=== PATIENT | female | born 1960 | race Caucasian/White ===

== ENCOUNTER 2017-04-29 06:28 | Day surgery (SDC) | payer BC ==
[~2017-04-29 06:28] MED LIST: Lactated Ringers 1,000 ML IV SCH; Sodium Chloride 0.9% 10 ML Syringe FLUSH PRN; Sodium Chloride 0.9% 2.5 ML Syringe FLUSH PRN; ceFAZolin 1 GM in Premix Bag 1 BAG IV ONE
[2017-04-29] MEDS ORDERED: Lidocaine 2% 5 ML SDV ONE (07:12)
[2017-04-29] MEDS ORDERED: Propofol 200 MG/20 ML SDV ONE (07:12)
[2017-04-29] MEDS ORDERED: Ondansetron 4 MG/2 ML SDV ONE (07:12)
[2017-04-29] MEDS ORDERED: fentaNYL 100 MCG/2 ML SDV ONE (07:12)
[2017-04-29] MEDS ORDERED: Midazolam 1 MG/ML 2 ML SDV ONE (07:13)
[2017-04-29] MEDS ORDERED: Lidocaine 1% with EPINEPHrine 1:100,000 20 ML MDV ONE (07:22)
[2017-04-29] MEDS ORDERED: Bupivacaine 0.25% 10 ML SDV ONE (07:22)
[2017-04-29] MEDS ORDERED: Neomycin/Polymyxin B Bladder Irrigation 1 ML Amp ONE (07:23)
--- NOTE | 2017-04-29 07:37 | PCM.PREANE ---
Preanesthetic Assessment - Anesthesia/Transfusion/Family Hx Anesthesia History: Prior Anesthesia Without Reaction Family History of Anesthesia Reaction: No Transfusion History: No Prior Transfusion(s) - Review of Systems General: No Symptoms Pulmonary: No Symptoms Cardiovascular: No Symptoms Gastrointestinal: No Symptoms Neurological: No Symptoms Other: Reports: None - Physical Assessment NPO Status Date: 04/28/17 O2 Sat by Pulse Oximetry: 98 Respiratory Rate: 16 Vital Signs: Last Vital Signs Temp 36.2 C 04/29/17 06:59 Pulse 64 04/29/17 06:59 Resp 16 04/29/17 06:59 BP 93/70 04/29/17 06:59 Pulse Ox 98 04/29/17 06:59 Height: 1.68 m Weight: 63.049 kg ASA Class: 2 Mental Status: Alert & Oriented x3 Airway Class: Mallampati = 2 Dentition: Reports: Normal Dentition ROM/Head Extension: Full Lungs: Clear to Auscultation, Normal Respiratory Effort Cardiovascular: Regular Rate, Regular Rhythm - Lab Values: Laboratory Last Values WBC 6.10 K/uL (4.0-11.0) 04/28/17 15:41 RBC 4.52 M/uL (4.30-5.90) 04/28/17 15:41 Hgb 14.3 g/dL (12.0-16.0) 04/28/17 15:41 Hct 42.5 % (36.0-46.0) 04/28/17 15:41 MCV 94.0 fL (80.0-98.0) 04/28/17 15:41 MCH 31.6 pg (27.0-32.0) 04/28/17 15:41 MCHC 33.6 g/dL (31.0-37.0) 04/28/17 15:41 RDW Std Deviation 46.2 fl (28.0-62.0) 04/28/17 15:41 RDW Coeff of Caitlin 13 % (11.0-15.0) 04/28/17 15:41 Plt Count 302 K/uL (150-400) 04/28/17 15:41 MPV 10.00 fL (7.40-12.00) 04/28/17 15:41 Nucleated RBC % 0.0 /100WBC 04/28/17 15:41 Nucleated RBCs # 0 K/uL 04/28/17 15:41 - Allergies Allergies/Adverse Reactions: Allergies Allergy/AdvReac Type Severity Reaction Status Date / Time codeine Allergy Nausea Verified 04/23/17 11:05 - Anesthesia Plan Pre-Op Medication Ordered: None - Acknowledgements Anesthesia Type Planned: General Anesthesia Pt an Appropriate Candidate for the Planned Anesthesia: Yes Alternatives and Risks of Anesthesia Discussed w Pt/Guardian: Yes Pt/Guardian Understands and Agrees with Anesthesia Plan: Yes PreAnesthesia Questionnaire HEENT History: Reports: Other (See Below) Other HEENT History: wears glasses Respiratory History: Reports: Other (See Below) Other Respiratory History: "had asthma attack in the past" Gastrointestinal History: Reports: None Genitourinary History: Reports: Renal Calculus 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: Psychiatric History: - Past Surgical History Head Surgeries/Procedures: Reports: None GI Surgical History: Reports: Colonoscopy Female Surgical History: Reports: Hysterectomy - SUBSTANCE USE Smoking Status *Q: Current Every Day Smoker Tobacco Use Within Last Twelve Months: Cigarettes Recreational Drug Use History: No - HOME MEDS Home Medications: Home Meds Ascorbic Acid [Vitamin C] 500 mg PO DAILY 04/23/17 [History] Cholecalciferol (Vitamin D3) [Vitamin D3] 1,000 units PO DAILY 04/23/17 [History ] Estradiol [Estrace 0.01% Vaginal Crm] 1 applic TOP ASDIRECTED 04/23/17 [History] - CURRENT (IN HOUSE) MEDS Current Meds: Current Medications Lactated Ringer's (Ringers, Lactated) 1,000 mls @ 125 mls/hr IV ASDIRECTED DAISY Last Admin: 04/29/17 07:01 Dose: 125 mls/hr Sodium Chloride (Saline Flush) 10 ml FLUSH ASDIRECTED PRN PRN Reason: Keep Vein Open Sodium Chloride (Saline Flush) 2.5 ml FLUSH ASDIRECTED PRN PRN Reason: Keep Vein Open Discontinued Medications Bupivacaine HCl (Sensorcaine-Mpf 0.25%) Confirm Administered Dose 10 ml .ROUTE .STK-MED ONE Stop: 04/29/17 07:23 Fentanyl (Sublimaze) Confirm Administered Dose 100 mcg .ROUTE .STK-MED ONE Stop: 04/29/17 07:13 Cefazolin Sodium/Dextrose 1 gm (/ Premix) 50 mls @ 100 mls/hr IV ONETIME ONE Stop: 04/29/17 05:29 Lidocaine (Xylocaine-Mpf 2%) Confirm Administered Dose 5 ml .ROUTE .STK-MED ONE Stop: 04/29/17 07:13 Lidocaine/Epinephrine (Xylocaine 1% With Epinephrine 1:100,000) Confirm Administered Dose 20 ml .ROUTE .STK-MED ONE Stop: 04/29/17 07:23 Midazolam HCl (Versed 1 Mg/Ml) Confirm Administered Dose 2 mg .ROUTE .STK-MED ONE Stop: 04/29/17 07:14 Neomycin/Polymyxin (Neosporin Gu Irrigant) Confirm Administered Dose 1 ml .ROUTE .STK-MED ONE Stop: 04/29/17 07:24 Ondansetron HCl (Zofran) Confirm Administered Dose 4 mg .ROUTE .STK-MED ONE Stop: 04/29/17 07:13 Propofol (Diprivan 20 Ml) Confirm Administered Dose 200 mg .ROUTE .STK-MED ONE Stop: 04/29/17 07:13
[2017-04-29] MEDS ORDERED: Scopolamine 1.5 MG Transdermal Patch ONE (07:43)
[2017-04-29] MEDS ORDERED: diphenhydrAMINE 50 MG/ML SDV ONE (08:13)
[2017-04-29] MEDS ORDERED: Dexamethasone 4 MG/ML 5 ML MDV ONE (08:13)
[2017-04-29] MEDS ORDERED: fentaNYL 100 MCG/2 ML SDV IVPUSH PRN (08:31)
--- NOTE | 2017-04-29 10:37 | PCM.OPNOTE ---
- General Post-Op/Procedure Note Date of Surgery/Procedure: 04/29/17 Operative Procedure(s): Anterior Colporrhaphy. Midurethral sling, Solyx system, . Cystoscopy Findings: Surgically absent cervix and [id number] degree cystocele. No bladder wall injury with patent ureters Pre Op Diagnosis: Stress urinary incontinence. 2nd degree cystoscele Post-Op Diagnosis: Same Anesthesia Technique: General LMA Primary Surgeon: Jackie Dela Cruz [employer] Recruiter: Tia Santiago Pathology: Vaginal mucosa Fluid Replacement, Intraop: 2,500 EBL in mLs: 30 Complications: None Condition: Good Free Text/Narrative:: Intake & Output 04/28/17 04/29/17 04/29/17 22:59 06:59 14:59 Intake Total 2900 Output Total 450 Balance 2450
--- NOTE | 2017-04-29 10:47 | PCM48HPAN ---
Post Anesthesia Note - EVALUATION WITHIN 48HRS OF ANESTHETIC Vital Signs in Normal Range: Yes Patient Participated in Evaluation: Yes Respiratory Function Stable: Yes Airway Patent: Yes Cardiovascular Function Stable: Yes Hydration Status Stable: Yes Pain Control Satisfactory: Yes Nausea and Vomiting Control Satisfactory: Yes Mental Status Recovered: Yes
--- NOTE | 2017-04-29 10:47 | PCM.POSTAN ---
POST ANESTHESIA ASSESSMENT - MENTAL STATUS Mental Status: Alert, Oriented - RESPIRATORY Respiratory Status: Respiratory Rate WNL, Airway Patent - CARDIOVASCULAR CV Status: Pulse Rate WNL, Blood Pressure Stable - GASTROINTESTINAL GI Status: No Symptoms - POST OP HYDRATION Hydration Status: Adequate & Stable
[2017-04-29] MEDS: Ketorolac 15 MG/ML SDV IVPUSH SCH ×2 (11:57→19:27)
[2017-04-29] MEDS ORDERED: LORazepam 1 MG Tab PO SCH (15:00)
[2017-04-29] MEDS ORDERED: Citric Acid/Sodium Citrate Solution 30 ML Cup PO SCH (15:00)
--- NOTE | 2017-04-29 19:39 | PCM.SN ---
- Free Text/Narrative Note: Patient doing well. Passed voiding trial after removal of vaginal packing. Denies vaginal bleeding or pain. Comfortable going home tonight Post op instructions reviewed: Nothingin the vagina fgor 6 weeks( tampon/sex) Weight restrictions of 15lbs Bleeding/ infection precautions reviewed Follow up in the clinic in 2 weeks. Call with any concerns
--- NOTE | 2017-04-30 00:08 | OR ---
SURGEON: Jackie Dela Cruz MD DATE OF PROCEDURE: 04/29/2017 ROOM SERVICE MANAGER: Dr. Santiago. PREOPERATIVE DIAGNOSES: 1. Stress urinary incontinence. 2. Second-degree cystocele. POSTOPERATIVE DIAGNOSES: 1. Stress urinary incontinence. 2. Second-degree cystocele. PROCEDURE: 1. Anterior colporrhaphy. 2. Midurethral sling, Solyx single incision. 3. Cystoscopy. ANESTHESIA: General LMA. IV FLUIDS: 2500 mL of crystalloid. ESTIMATED BLOOD LOSS: 30 mL. COMPLICATIONS: None. DISPOSITION: Stable to PACU. FINDINGS: Surgically absent cervix and uterus. Second-degree cystocele with good apical support. BRIEF HISTORY: The patient is a 56-year-old lady, with a history of hysterectomy,presented for evaluation for ongoing difficulties with stress incontinence. Cystoscopy performed in the office confirmed stress incontinence.The patient tried physical therapy but reported that it was not effective,and after further discussion of management options, she opted to proceed with surgical intervention declining further physical therapy or pessaries. She also does have a second-degree cystocele. Having explained the increased risk of urinary retention if only the midurethral sling procedure was performed without repairing the cystocele,she accepted to have an anterior colporrhaphy performed. The risks of both procedures were explained to the patient in detail. The risk of the cystocele repair include worsening stress incontinence if performed without sling procedure, reoccurrence rate of 30% to 40%, risk of injury to the bladder, bowel, and blood vessels. The risk of the midurethral sling included the current issue related to mesh erosion and complications including the FDA black box warning were also explained. Understanding this risks and issues, she desired to proceed and appropriate consents was obtained. Prior to surgery, she was placed on topical estrogen to help with vaginal mucosa tissue due to atrophy. PROCEDURE DETAILS: The patient was taken to the operating room, where induction of general anesthesia was performed without difficulty. After adequate level of anesthesia, she was placed in dorsal lithotomy position, prepped and draped in the usual sterile fashion for vaginal surgery. A Patel was in place. Appropriate time-out was held. She received 1 g of Ancef. Examination under anesthesia revealed the above-mentioned findings. A weighted speculum was placed posteriorly. Allis clamps were used to grab the vaginal mucosa. Hydrodissection was performed beneath the anterior vaginal wall mucosa starting approximately 1 cm cephalad from the urethral orifice. A 15 blade scalpel was used to incise the vaginal mucosa overlying the cystocele in the midline, the mucosa was undermined, and the bladder was dissected off free from the underlying vaginal mucosa with both sharp and blunt dissection. The pubovaginal fascia was identified using 2-0 Polysorb suture, the cystocele was reduced by reapproximating the fascial layer in the midline using multiple interrupted mattress sutures. The vaginal sulcus was reinspected and found to be intact. The redundant vaginal mucosa was then trimmed and closed using running locked sutures of 0 Vicryl. Hemostasis was achieved. Attention was then turned to performing the midurethral sling. The vaginal mucosa in the midline directly below the urethral meatus was isolated with Allis clamps. Hydrodissection was then performed int he midline and laterally. Using a 15 blade scalpel, a midline surgical incision was created approximately 1.5 cm in size. The mucosa on either side of the incision were now grabbed with Allis's and the vaginal mucosa was then dissected off sharply and bluntly along the periurethral space until the ischiopubic ramus was reached and palpated on either side.The Solyx sling was then loaded on the introducer according to the finisher hot strip's guidelines. The introducer was then slid into the vaginal incision onto the right side. along the periurethral space with the index finger placed protecting the urethra. This was advanced in a 45-degree angle until the ischiopubic ramus was cleared introducing the sling into the obturator internus muscle. Care was taken to protect the sulcus during all the time. Once the sling had been anchored into the obturator internus muscle, the sling was then released removing the introducer from the site. In similar fashion, the sling was reloaded onto the introducer and it was gently introduced into the patient's left side with the index finger protecting the ureter all the time. Advanced at 45-degree point until the ischiopubic ramus was cleared on the left side reaching the obturator internus muscle and the sling was advanced into the muscle. At this point, the introducer was left in place and the Patel catheter was removed, the bladder was back filled with 240 ml of normal saline. Performing Valsalva maneuvers, no leakage was noted. The catheter was then passed easily back into the bladder through the urethral meatus. The tape appeared to be appropriately secured along the midurethral tissue snugly. Once this was confirmed, the introducer was then deployed on the left side anchoring the sling into the internus obturator muscle and the introducer was removed. The vaginal mucosa was then repaired using 3-0 Vicryl sutures in continuous running locked fashion. A cystoscope was performed at this juncture. Noted that no bladder wall injuries were visualized and ureteral patency confirmed with efflux of urine from both ureters. The bladder was drained and the cystoscope was removed. A Patel catheter was replaced. Hemostasis was evident. Vaginal packing instilled with water-based lubricant was then placed inside the vagina. Final sponge, needle, and instrument counts were correct. The patient was transferred to the recovery room in a stable condition. The vaginal packing and catheter were removed in a few hours, and the patient will undergo a trial void before discharge. ADUMVIV / MODL /[id number] MTDKim
== END 2017-04-29 20:30 | disposition home or self-care (01) ==
LOC: MW.SDS 06:28 → MW.OB 10:24 → MW.SDS 20:30
PROVIDERS: ATTEND Obstetrics & Gynecology
DX: N81.11 Cystocele, midline (principal); N39.3 Stress incontinence (female) (male); F41.9 Anxiety disorder, unspecified; F17.210 Nicotine dependence, cigarettes, uncomplicated; Z79.899 Other long term (current) drug therapy; Z88.5 Allergy status to narcotic agent; Z87.442 Personal history of urinary calculi; Z90.710 Acquired absence of both cervix and uterus; Z98.890 Other specified postprocedural states
CPT/HCPCS: 36415; 57240; 57288; 85027; A9270; J0690; J1100; J1200; J1885; J2250; J2405; J3010; J7120; 00940; 88304; C1781; J2704

== ENCOUNTER 2021-11-29 08:22 | Day surgery (SDC) | payer BC ==
[~2021-11-29 08:22] MED LIST changes: +Ondansetron 4 MG/2 ML SDV ONE; +Propofol 200 MG/20 ML SDV ONE; +Sodium Chloride 0.9% 20 ML SDV IV PRN; -ceFAZolin 1 GM in Premix Bag 1 BAG IV ONE; +fentaNYL 100 MCG/2 ML SDV ONE
[2021-11-29] MEDS ORDERED: Dexamethasone 4 MG/ML 5 ML MDV ONE (10:14)
[2021-11-29] MEDS ORDERED: Lidocaine 2% 5 ML SDV ONE (10:50)
== END 2021-11-29 11:49 | disposition home or self-care (01) ==
LOC: MW.SDS 08:22
PROVIDERS: ATTEND Surgery
DX: R19.4 Change in bowel habit (principal); Z88.5 Allergy status to narcotic agent; F17.210 Nicotine dependence, cigarettes, uncomplicated; Z88.8 Allergy status to other drugs, medicaments and biological substances; Z98.890 Other specified postprocedural states
CPT/HCPCS: J1100; J2405; J2704; J3010; J7120